=== PATIENT | female | born 1955 | race Caucasian/White ===

== ENCOUNTER 2018-07-15 11:30 | Outpatient (CLI) | payer OTHER, SELFPAY ==
--- NOTE | 2018-07-15 10:40 | DI.RAD_ITS ---
SYMPTOMS/DIAGNOSIS: LT KNEE PAIN, LT PATELLOFEMORAL ARTHRALGIA, M25.562 LEFT KNEE: Three views. No bone or joint abnormality is identified. The soft tissues are grossly unremarkable. IMPRESSION: Negative left knee.
== END 2018-07-15 11:50 ==
PROVIDERS: PCP Emergency Medicine; Visit Provider Family Medicine
DX: M25.562 Pain in left knee (principal); M22.2X2 Patellofemoral disorders, left knee
CPT/HCPCS: 73562

== ENCOUNTER 2018-08-05 10:08 | Outpatient (CLI) | payer OTHER, SELFPAY ==
--- NOTE | 2018-08-05 09:54 | DI.RAD_ITS ---
SYMPTOMS/DIAGNOSIS: PAIN LEFT KNEE: Single AP weight bearing view of the left knee was obtained. The joint spaces appear well maintained. The bones appear normally mineralized and normally aligned.
== END 2018-08-05 10:28 ==
PROVIDERS: PCP Emergency Medicine; Visit Provider Physician Assistant Surgical
DX: M25.562 Pain in left knee (principal)
CPT/HCPCS: 73560

== ENCOUNTER 2018-08-17 00:56 | Outpatient (CLI) | payer OTHER, SELFPAY ==
--- NOTE | 2018-08-17 08:56 | DI.MRI_ITS ---
SYMPTOMS/DIAGNOSIS: LEFT KNEE INTERNAL DERANGEMENT, M25.92, POSTERIOR PAIN LEFT KNEE MRI: MRI examination of the knee was performed according to the usual protocol. Note is made of mild cartilage thinning, and abnormal cartilage signal and subchondral signal changes of the patella. Note is also made of mildly abnormal signal in the soft tissues anterior to the patellar attachment on the tibia, which may represent mild inflammatory process. There are subchondral cysts of the central portion of the proximal tibia, presumably on a degenerative basis. Cruciate ligaments appear intact. No definite meniscal tear is seen, although the menisci are not ideally visualized due to motion artifact on multiple pulse sequences. In particular, I cannot exclude a nondisplaced tear of the posterior horn of the lateral meniscus, as there is a questioned slight irregularity of meniscal contour at this site. Collateral ligaments appear intact. CONCLUSION: Patellofemoral degenerative changes. No cruciate ligament tear, posterior horn lateral meniscus tear suspected but not confirmed.
== END 2018-08-17 01:16 ==
PROVIDERS: PCP Emergency Medicine; Visit Provider Orthopaedic Surgery
DX: M23.92 Unspecified internal derangement of left knee (principal); M17.12 Unilateral primary osteoarthritis, left knee
CPT/HCPCS: 73721

== ENCOUNTER 2019-03-30 19:34 | Outpatient (REF) | payer OTHER, SELFPAY ==
--- NOTE | 2019-03-30 18:20 | PAPFT_PTH ---
PATIENT: Anabell Torres LOC: [facility] U#:[id number] AGE/SX: 63/F ROOM: RE03/30/[address]: Cece Vieira, PhD TEACHER LEARNING DISABLED : 1955 BED: DIS: 03/30/2019 SPEC #: [id number] RECD: 03/31/19 12:57 STATUS: GERRI REQ #: [id number] BRIDGETTE: 03/30/19 18:[address]: Cece Vieira DEPT: [facility] Cytology RECD BY: Chiara Barron Tissues: 1 - CX/ENDOCX FOR PAP SMEARS Procedures: PAP THIN PREP/UVM Screening HPV DNA PROBE Comments: [id number] (CHLAMYDIA/GC)
[2019-04-01 14:14] LABS: Chlamydia Result Negative (Negative); GC Result Negative (Negative)
== END 2019-03-30 19:54 ==
LOC: LBN 19:34
PROVIDERS: PCP Nurse Practitioner; Visit Provider Nurse Practitioner
DX: Z12.4 Encounter for screening for malignant neoplasm of cervix (principal); Z11.51 Encounter for screening for human papillomavirus (HPV)
CPT/HCPCS: 87491; 87591; 88142; 87624

== ENCOUNTER 2019-04-07 01:32 | Outpatient (CLI) | payer OTHER, SELFPAY ==
[2019-04-07 11:57] LABS: Calculated LDL 152 mg/dL; Cholesterol 206 mg/dL (<200); HDL Cholesterol 43 mg/dL (40-60); Triglyceride 55 mg/dL (<150)
[2019-04-07 12:04] LABS: Hemoglobin A1C 5.9 % (4.5-6.2)
== END 2019-04-07 01:52 ==
PROVIDERS: PCP Nurse Practitioner; Visit Provider Nurse Practitioner
DX: Z13.1 Encounter for screening for diabetes mellitus (principal); Z13.6 Encounter for screening for cardiovascular disorders
CPT/HCPCS: 36415; 80061; 83036

== ENCOUNTER 2019-12-20 10:54 | Emergency (ER) | payer OTHER, SELFPAY ==
[2019-12-20] VITALS (32 sets, daily range): BP systolic 158–176; BP diastolic 83–102; PULSE 61–91; RESP 10–23; TEMP 36.6; O2SAT 93–100
--- NOTE | 2019-12-20 11:06 | ED.GENADUL_ITS ---
Discharge Plan Disposition Patient Disposition: HOME Condition: Stable Discharge Details Chief Complaint: Allergic Clinical Impression: Bee sting Primary Care Provider: Cece Vieira ED Provider: Lizabeth Villalobos Home Meds and New Rx's Prescriptions: New prednisone 20 mg tablet See Rx Instructions .ROUTE .COMPLEX Qty: 12 RF: 0 Discharge Instructions Instructions: Insect Bite or Sting (ED) Additional Instructions: Drink plenty of fluids and get plenty of rest. Take the steroids until finished. Take Benadryl as needed and directed for itching. Follow-up with your primary care doctor in 1 week. Return to the emergency department with any worsening or new concerning symptoms. Discharge Data Discharge Physician: Lizabeth Villalobos Medical Decision Making 1100 -- 63-year-old female presents for urticaria and hives at sites of multiple bee stings that occurred 3 hours prior to arrival. Denies any throat swelling or itching, difficulty breathing, nausea or vomiting. She took 2 tabs of Benadryl prior to arrival. BP 174/102. She has no history of hypertension. She has erythema and edema consistent with urticaria noted to left lower lip and chin, right upper extremity and right ankle at site of bee sting. As she has lower lip swelling at site of bee sting, do not consider this significant oral or respiratory involvement, so do not see an indication for epinephrine at this time. Will place an IV, bolus IV fluids, Solu-Medrol and reassess. 1215 --patient feeling slightly better. She is complaining of some right ankle pain. Will give a dose of Toradol and reassess. 1315 --patient reassessed -she feels better but still has some swelling noted to the left lower lip and chin. Areas of erythema appear much improved. Denies any throat swelling or itching or difficulty breathing. We will continue to monitor a little while longer and patient agreeable. 1500 --patient reassessed -she states she feels much better. Near resolution of left lower lip and chin swelling. She denies any complaints of difficulty swallowing or breathing. Patient feels good to go home. We will send with a prescription for oral steroids. She is advised to use Benadryl or other antihistamines as needed. Advised to follow up with the primary care doctor for re-evaluation. Usual and customary return precautions given prior to discharge. Medical Records Medical records reviewed: Yes I reviewed the patient's medical records. HPI General Mode of arrival: ambulatory . Date/Time Provider Initiated Documentation: 12/20/19 11:06 . Limitations to Documentation: no limitations . Information obtained by: patient . HPI Narrative: Patient is a 63-year-old female presents with red itchy bumps noted to her face, arm and right leg after multiple bee stings sustained at home 3 hours ago. Patient states she was outside weeding when she pulled the lead and was stung by approximately 10 hornets in her face, right arm and leg. She denies any history of anaphylaxis to bees or other medications. She took 2 tabs of Benadryl prior to arrival. She called her primary care doctor as well as pharmacist and was advised to come to the ER for further evaluation. She denies any fever, throat swelling or itching, difficulty swallowing, chest pain, shortness of breath, nausea, vomiting or abdominal pain. Related Data Home Medications Medication Instructions Recorded Confirmed prednisone See Rx Instructions .ROUTE 12/20/19 .COMPLEX #12 tab Previous Rx's Medication Instructions Recorded prednisone See Rx Instructions .ROUTE 12/20/19 .COMPLEX #12 tab Allergies Allergy/AdvReac Type Severity Reaction Status Date / Time Penicillins Allergy Unknown Verified 03/30/19 18:23 General Stated Complaint: Allergic VISHAL: 3 Review of Systems All systems reviewed & are unremarkable except as noted in HPI and below Constitutional Constitutional: Reports as per HPI, Denies chills and Denies fever(s) Eyes Eyes: Denies blurry vision ENT Ears, Nose, Mouth, and Throat: Denies dizziness, Denies sore throat and Denies t hroat swelling Cardiovascular Cardiovascular: Denies chest pain and Denies dyspnea Respiratory Respiratory: Denies cough and Denies dyspnea Gastrointestinal Gastrointestinal: Denies abdominal pain, Denies diarrhea and Denies vomiting Genitourinary Genitourinary: Denies hematuria and Denies dysuria Musculoskeletal Musculoskeletal: Denies back pain and Denies numbness Integumentary/Breasts Skin/Breast: Denies lesions and Reports rash Neurologic Neurologic: Denies dizziness, Denies localized weakness and Denies numbness Allergic/Immunologic Allergic/Immunologic: Denies throat swelling [facility] Medical History (Updated 12/20/19 @ 14:12 by Lizabeth Villalobos DO) No significant past medical history (Acute) Surgical History (Updated 12/20/19 @ 12:31 by Lizabeth Villalobos DO) No significant past surgical history (Acute) Family History (Updated 03/24/19 @ 10:31 by Emerson Bianchi) Mother , age 75+ Metastatic lung cancer (metastasis from lung to other site) Father , age 75+ Heart disease Sister Depression Chronic fatigue syndrome Son No problems noted. Son No problems noted. Maternal Grandfather , in his 70s Heart disease [place] Paternal Grandfather , in his 70s No problems noted. Maternal Grandmother , in her 70s No problems noted. Paternal Grandmother , in her 40s No problems noted. Social History (Updated 03/24/19 @ 10:25 by Emerson Bianchi) Smoking/Tobacco Use Status: Former Tobacco Use Quit Date: 05/19/77 Second Hand Exposure: Yes Alcohol Intake: current Alcohol Intake frequency: a few times a week Alcohol type: beer, wine and hard liquor Drug use: Never Substance use type: does not use Caregiver/Support person: No Household members: none Housing: house Communication Needs: None Do you need help understanding health information?: Never Pets and animals: Yes Pets and animals: cat(s) and dog(s) Sexually active: No Do you think of yourself as: straight/heterosexual Current gender identity: female What is your relationship status?: How often do you talk on the phone with friends or family?: three or more times per week How often do you get together with friends or relatives?: three or more times per week How often do you attend rastafari or adventism services?: 1-3 times per year Do you belong to any clubs or organized social groups?: no Panel score (0-1 are the most socially isolated patients): 1 Duration: 60-90 minutes/day Frequency: daily Emi/Tenriism: Jew Special emi needs: No Seatbelt use: always Helmet use: Yes Helmet use: always Drive intox or ride w/intox driver examiner: No Do you feel safe at home: Yes Do you feel safe in your relationship?: Yes Additional Social history: lives alone Exam Const General: cooperative and healthy appearing Nutritional Appearance: average body habitus Orientation: alert and awake HENNV Head: normocephalic and atraumatic Ears: hearing grossly normal bilaterally, external ears normal and TM's normal bilaterally General nose exam: external nose normal, nares normal and no nasal discharge Mouth: oral mucosae normal, tongue normal and moist mucous membranes Teeth and gingiva: dentition normal Throat: posterior oropharynx normal, uvula midline, no peritonsillar masses and no uvular edema Eyes General: appearance normal, both eyes and all related structures Eyelids: eyelids normal Conjunctivae: conjunctivae normal Pupils: PERRL EOM: EOM intact bilaterally Neck Neck: normal visual inspection, no lymphadenopathy, trachea midline, supple and No submandibular swelling Chest Chest: normal inspection of the chest Resp Effort & Inspection: normal respiratory effort, no audible wheezes, no nasal flaring, no retractions and no use of accessory muscles Auscultation: clear to auscultation bilaterally Cardio Rate: regular rate Rhythm: regular rhythm Heart Sounds: no murmurs GI Inspection: normal to inspection Palpation: soft, no hepatosplenomegaly, no guarding, no masses, not rigid and nontender Auscultation: normal bowel sounds External Female Exam: normal external appearance Back/Spine/Pelvis Back: no CVA tenderness Neuro General: patient alert, patient awake, patient oriented x3 and no meningeal signs Cognition: normal cognition Speech: speech normal Motor: muscle tone normal throughout Sensory Exam: no sensory deficits noted Extrem General: normal to inspection, full ROM and capillary refill normal Psych Appearance: grossly normal Mental Status: mental status grossly normal Speech and Movement: speech and movement normal Affect: normal affect Thought Process: normal Course Vital Signs Vital signs: Vital Signs Temperature 97.9 F 12/20/19 10:56 Pulse 76 12/20/19 10:56 Respiratory Rate 14 12/20/19 10:56 Blood Pressure 174/102 H 12/20/19 10:56 Pulse Oximetry 100 12/20/19 10:56 Temperature 97.9 F 12/20/19 10:56 Temperature Source Skin 12/20/19 10:56 Pulse 76 12/20/19 10:56 Respiratory Rate 14 12/20/19 10:56 Respiratory Effort 12/20/19 11:04 Respiratory Pattern Normal 12/20/19 11:04 Blood Pressure 174/102 H 12/20/19 10:56 Blood Pressure Position Sitting 12/20/19 10:56 Pulse Oximetry 100 12/20/19 10:56 Oxygen Delivery Method Room Air 12/20/19 10:56 Oxygen Flow Rate 0 12/20/19 10:56 Pain Level 6 12/20/19 10:56
[2019-12-20] MEDS: Normal Saline 1,000 ML 1000 ML IV (11:10)
[2019-12-20] MEDS: methylPREDNISolone SUCC 125 MG VIAL IVP (11:11)
[2019-12-20] MEDS: Ketorolac 30 MG/ML VIAL IVP (12:45)
== END 2019-12-20 15:28 | disposition home or self-care (01) ==
PROVIDERS: Emergency Provider Physician Assistant; PCP Nurse Practitioner
DX: T63.451A Toxic effect of venom of hornets, accidental (unintentional), initial encounter (principal); L50.0 Allergic urticaria; L29.8 Other pruritus; M25.571 Pain in right ankle and joints of right foot
CPT/HCPCS: 96361; 96374; 96375; 99284; J1885; J2930

== ENCOUNTER 2021-01-23 12:23 | Emergency (ER) | payer OTHER, SELFPAY ==
[2021-01-23 12:31] VITALS: BP 148/88; PULSE 82; RESP 16; TEMP 36.8; O2SAT 95
--- NOTE | 2021-01-23 12:43 | ED.GENADUL_ITS ---
Discharge Plan Disposition Patient Disposition: HOME Condition: Stable Discharge Details Clinical Impression: Closed fracture of left distal radius Primary Care Provider: Cece Vieira ED Provider: Emilie Martinez Home Meds and New Rx's Prescriptions: No Action No Known Home Meds RF: 0 Discharge Instructions Instructions: Wrist Fracture in Adults (ED), Splint Care (ED) Additional Instructions: Please leave splint on until follow-up with Ortho. Do not get splint wet. If your fingers become cold blue numb or tingling you may loosen up the James wrap. Please call the orthopedic office tomorrow if you do not hear from them by the end of the day they should be calling you to instruct on further care. Please take Tylenol or Ibuprofen with food every 4-6 hours as needed for pain and swelling. Stand Alone Forms: Work Release Referrals: Aden Armenta MD [ [facility] STAFF PHYSICIAN] - Discharge Data Discharge Date/Time-TO BE ENTERED AT DEPARTURE: 01/23/21 14:54 Medical Decision Making 65-year-old female presents to the ER with chief complaint of left wrist pain and deformity status post a mechanical fall while hiking prior to arrival. Patient reports a FOOSH type injury. She does have some ventral swelling noted distal CMS intact. Did not take anything prior to arrival. No other injuries or complaints at this time. XR and tylenol ordered. Rings removed, ice pack given. EXAM: XR WRIST LT COMPLETE CLINICAL HISTORY: Fall, deformity. TECHNIQUE: 2D digital imaging was performed. COMPARISON: No exams were available for comparison FINDINGS: BONES: There is a comminuted fracture of the distal radial metaphysis with impaction and dorsal angulation. There is no different separation at the articular surface. Tiny densities seen adjacent to the ulnar styloid. No carpal or metacarpal fractures are seen.. No bony destructive lesion is seen. JOINTS: The carpal bones are normally aligned. SOFT TISSUE: Marked soft tissue swelling around the wrist. IMPRESSION: Comminuted, impacted distal radial fracture. Spoke with Dr. Armenta who is on-call for orthopedics who was personally able to review the imaging. He recommends a volar splint and discussion with patient regarding reduction here in the emergency department versus reduction at a later date in the OR. After discussing results with patient and options she opted to have the reduction done in the OR with Dr. Armenta. Volar splint was applied a s noted in procedure note above. CMS intact post splint application. Patient placed on orthopedic follow-up list. Discussed home care strict return instructions and follow-up with patient who verbalized understanding. HPI General Mode of arrival: ambulatory . Date/Time Provider Initiated Documentation: 01/23/21 12:37 . Limitations to Documentation: no limitations . Information obtained by: patient and RN notes reviewed . HPI Narrative: 65-year-old female presents to the ER with chief complaint of left wrist pain and deformity status post a mechanical fall while hiking prior to arrival. Patient reports a FOOSH type injury. She does have some ventral swelling noted distal CMS intact. Did not take anything prior to arrival. No other injuries or complaints at this time. Related Data Home Medications Medication Instructions Recorded Confirmed Unknown [No Known Home Meds] 07/06/20 01/24/21 Allergies Allergy/AdvReac Type Severity Reaction Status Date / Time Penicillins Allergy Unknown Verified 01/24/21 09:23 General Stated Complaint: Orthopedic VISHAL: 3 Review of Systems All systems reviewed & are unremarkable except as noted in HPI and below Musculoskeletal Musculoskeletal: Reports deformity (left wrist), Reports arthralgias and Reports joint swelling [facility] Medical History (Updated 01/24/21 @ 09:22 by Jeffy Mccann) Hx of dislocation of shoulder No significant past medical history Surgical History (Updated 01/24/21 @ 09:25 by Jeffy Mccann) Hx of colonoscopy No significant past surgical history Family History Mother , age 75+ Metastatic lung cancer (metastasis from lung to other site) Father , age 75+ Heart disease Sister Depression Chronic fatigue syndrome Son No problems noted. Son No problems noted. Maternal Grandfather , in his 70s Heart disease [place] Paternal Grandfather , in his 70s No problems noted. Maternal Grandmother , in her 70s No problems noted. Paternal Grandmother , in her 40s No problems noted. Social History Smoking/Tobacco Use Status: Former Tobacco Use Quit Date: 05/19/77 Tobacco: How many years used: 3 Second Hand Exposure: Yes Smoking risk assessment performed?: Yes Alcohol Intake: current Alcohol Intake frequency: a few times a week Alcohol type: beer, wine and hard liquor Drug use: Never Substance use type: does not use Caregiver/Support person: No Household members: none Housing: house Communication Needs: None Do you need help understanding health information?: Never Pets and animals: Yes Pets and animals: cat(s) and dog(s) Sexually active: No Do you think of yourself as: straight/heterosexual Current gender identity: female What is your relationship status?: How often do you talk on the phone with friends or family?: three or more times per week How often do you get together with friends or relatives?: three or more times per week How often do you attend jain or mosque services?: 1-3 times per year Do you belong to any clubs or organized social groups?: no Panel score (0-1 are the most socially isolated patients): 1 Duration: 60-90 minutes/day Frequency: daily Emi/Gnosticist: Hindu Special emi needs: No Seatbelt use: always Helmet use: Yes Helmet use: always Drive intox or ride w/intox maintenance truck driver: No Do you feel safe at home: Yes Do you feel safe in your relationship?: Yes Additional Social history: lives alone Exam Extrem Left upper extremity: wrist Details: abnormal to inspection Details: obvious deformity (Ventral surface wrist) and joint swelling, tenderness, swelling, normal vascular exam and radial pulse present Course Vital Signs Vital signs: Vital Signs Temperature 36.8 C 01/23/21 12:31 Pulse 82 01/23/21 12:31 Respiratory Rate 16 01/23/21 12:31 Blood Pressure 148/88 H 01/23/21 12:31 Pulse Oximetry 95 01/23/21 12:31 Temperature 36.8 C 01/23/21 12:31 Pulse 82 01/23/21 12:31 Respiratory Rate 16 01/23/21 12:31 Blood Pressure 148/88 H 01/23/21 12:31 Blood Pressure Position Sitting 01/23/21 12:31 Pulse Oximetry 95 01/23/21 12:31 Oxygen Delivery Method Room Air 01/23/21 12:31 Oxygen Flow Rate 0 01/23/21 12:31 Pain Level 8 01/23/21 12:31 Procedures Orthopedic Splinting/Casting Injury #1: Side: left Upper Extremity Injury Location: wrist Upper Extremity Immobilizer: volar splint and James wrap Other Orthopedic Equipment: other (Sling)
[2021-01-23] MEDS: Acetaminophen 325 MG TAB 650 MG PO (13:00)
--- NOTE | 2021-01-23 13:25 | DI.RAD_ITS ---
Exam(s) XR WRIST LT COMPLETE EXAM: XR WRIST LT COMPLETE CLINICAL HISTORY: Fall, deformity. TECHNIQUE: 2D digital imaging was performed. COMPARISON: No exams were available for comparison FINDINGS: BONES: There is a comminuted fracture of the distal radial metaphysis with impaction and dorsal angul ation. There is no different separation at the articular surface. Tiny densities seen adjacent to t he ulnar styloid. No carpal or metacarpal fractures are seen.. No bony destructive lesion is seen. JOINTS: The carpal bones are normally aligned. SOFT TISSUE: Marked soft tissue swelling around the wrist. IMPRESSION: Comminuted, impacted distal radial fracture. DATA REPOSITORY: RADIATION DOSE DELIVERED:
[2021-01-23 14:34] LABS: Source Nasal/Nares
[2021-01-23 15:32] LABS: COVID-19 PCR Negative (Negative)
== END 2021-01-23 14:54 | disposition home or self-care (01) ==
PROVIDERS: Emergency Provider Registered Nurse Emergency; PCP Nurse Practitioner
DX: S52.592A Other fractures of lower end of left radius, initial encounter for closed fracture (principal); W18.39XA Other fall on same level, initial encounter; Y93.01 Activity, walking, marching and hiking; Z20.822 Contact with and (suspected) exposure to COVID-19; Z03.818 Encounter for observation for suspected exposure to other biological agents ruled out
CPT/HCPCS: 29125; 87635; 99283; 73110

== ENCOUNTER 2021-01-25 11:28 | Day surgery (SDC) | payer OTHER, SELFPAY ==
--- NOTE | 2021-01-24 13:47 | W.ANESPRE ---
General Info Date of Service Date Performed: 01/25/21 Height: 5 ft 6 in Weight: 58.967 kg Body Mass Index (BMI): 20.9 Surgical Procedure: Operation Date: 01/25/21 13:10 Proposed Procedures Side Surgeon p Closed Reduction AND CASTING LT WRIST Left Aden Armenta MD Meds Allergies and Home Medications Allergies Allergy/AdvReac Type Severity Reaction Status Date / Time Penicillins Allergy Unknown Verified 01/25/21 11:54 Home Medication Medication Instructions Recorded ibuprofen 200 mg PO PRN PRN 01/25/21 Current Visit Medications: Current Medications Generic Name Dose Route Start Last Admin Trade Name Freq PRN Reason Stop Dose Admin Ringer's Solution 1,000 mls @ 80 mls/hr 01/25/21 06:00 IV 02/23/21 23:59 INFUSION KAREN IV Miscellaneous Supplies 1 each 01/25/21 06:00 Iv Access IV 02/23/21 23:59 DIRECTED KAREN Sodium Chloride 0 ml 01/25/21 06:00 Normal Saline Flush 10 Ml Syr IV 02/23/21 23:59 PRN PRN Sodium Chloride 0 ml 01/25/21 06:00 Normal Saline 10 Ml Vial IJ 02/23/21 23:59 DIRECTED PRN Sterile Water 0 ml 01/25/21 06:00 Water,Injection,Sterile 10 Ml Vial IJ 02/23/21 23:59 DIRECTED PRN PFSH Active Problems Active Problems: Problem Status Onset Code Annual physical exam Z00.00 Essential tremor G25.0 Pre-diabetes R73.03 Elevated blood pressure reading without diagnosis of hypertension R03.0 Closed fracture of left distal radius S52.502A Medical History Medical History (Updated 01/25/21 @ 12:56 by Aden Armenta MD) Hx of dislocation of shoulder No significant past medical history Surgical History Surgical History Hx of colonoscopy No significant past surgical history Tobacco Smoking/Tobacco Use Status: Former Tobacco Use Tobacco: How many years used: 3 Passive smoking exposure: Yes (rarely) Second hand exposure: Yes Alcohol Alcohol Intake: current Alcohol intake frequency: a few times a week Alcohol type: beer, wine and hard liquor Substance Use Substance use: Never Substance use type: does not use Vital Signs and Lab Results Vital Signs Most Recent Vital Signs in EMR: Temp Pulse Resp BP Pulse Ox 36.9 C 91 H 16 132/71 98 01/25/21 11:35 01/25/21 11:35 01/25/21 11:35 01/25/21 11:35 01/25/21 11:35 Lab Results Blood Type / Crossmatch: No Data to Display Complete Blood Count: No Data to Display Complete Metabolic Panel: No Data to Display Liver Function Panel: No Data to Display Coagulation Panel: No Data to Display Cardiac Panel: No Data to Display Arterial Blood Gas: No Data to Display Venous Blood Gas: No Data to Display Pancreas Panel: No Data to Display Thyroid Panel: No Data to Display Infectious Disease: Coronavirus (COVID-19)(PCR) Negative (Negative) 01/23/21 14:15 01/23/21 Coronavirus 2019 Source Nasal/Nares 01/23/21 14:15 01/23/21 Blood Cultures: No Data to Display Toxicology Panel: No Data to Display Anesthesia Assessment and Plan Anesthesia History Personal History: No History of Anesthesia Complications Family History: No Family History of Anesthesia Complications Exercise Tolerance Exercise Tolerance: Metabolic Equivalents>4 Cardiac & Pulmonary Exam Cardiac Exam: Normal S1/S2 Heart Sounds Pulmonary Exam: Clear Bilateral Breath Sounds Airway Exam Known Difficult Airway: No Mallampati Class: 2 Mouth Opening: Normal (> 3cm) Thyromental Distance: Less than 3 cm Neck Range of Motion: Full ROM Neck Circumference: Normal Teeth Condition: Normal Dentition ASA Classification ASA Score: ASA 2 Emergency Case?: No NPO Status NPO Status: NPO Clears >2 hours, Solids >8 hours Anesthesia Plan Resuscitation Status: Full Code Anesthesia Technique: General Anesthesia Airway Planned: Natural Airway Monitors Used: Standard Monitors Preoperative Comments:: 65 yo female to OR for ORIF for left wrist fracture sustained while hiking. no sig PMHx.
[2021-01-25] VITALS (7 sets, daily range): BP systolic 100–132; BP diastolic 56–71; PULSE 62–91; RESP 10–16; TEMP 36.4–36.9; O2SAT 94–98; BMI 20.9
--- NOTE | 2021-01-25 10:30 | DI.RAD_ITS ---
Exam(s) XR WRIST LT LIMITED EXAM: XR WRIST LT LIMITED CLINICAL HISTORY: LEFT DISTAL RADIUS FRACTURE. TECHNIQUE: 2D and realtime digital imaging was performed. COMPARISON: No exams were available for comparison FINDINGS: Fluoroscopy was provided in the OR for Dr. Armenta. Hard copy images show placement of a fixation p late along the volar aspect of the distal radius for fracture fixation. Please see procedure note for details. Fluoro time 37 seconds. RADIATION DOSE DELIVERED: nancy Jasso=0.58 mGy
[2021-01-25] MEDS: Lactated Ringers 1,000 ML 80 ML IV (12:14)
--- NOTE | 2021-01-25 12:51 | W.PREOPHP ---
Date of service: 01/25/21 Time of Service: 12:52 Assessment and Plan Assessment and plan (1) Closed fracture of left distal radius: Status: Acute Assessment and plan: Aileen is a 65-year-old active female who suffered a fracture to her left hand. She is [id number]. However, she is very active. She has no major medical issues. Given the nondisplacement I do recommend reduction. Discussed close reduction and casting versus open reduction internal fixation. She would likely use this as much possible symptoms possible and therefore, given the amount of displacement of the risk for redisplacement after postreduction I did offer her open reduction and internal fixation. I reviewed 10 procedure. I discussed the to include bleeding, infection, pain, stiffness, malunion, nonunion, damage to nerves and vessels, damage to muscle tendons, hardware prominence, hardware failure. Despite these risks, she elects to proceed. Qualifiers: Encounter type: initial encounter Fracture morphology: Jim' Qualified Code(s): S52.532A - Colles' fracture of left radius, initial encounter for closed fracture History of Present Illness History of Present Illness Chief Complaint: Left Wrist Fracture Narrative: Aileen is a 5-year-old who had a fall onto an outstretched left hand while hiking. She had immediate pain and deformity in the emergency department 2 days prior. She was diagnosed with a displaced distal radius fracture with notable dorsal comminution and angulation. She was placed into a splint. I had a long discussion with her about treatment options recommendations close reduction is not open reduction internal fixation. She prefers to proceed with ORIF and she is hesitant today. She reports no numbness or tingling. No significant pain. She is taking no medications. She denies any elbow or shoulder pain. She is very active and wants we will use her hand as soon as possible. She hikes and is very active on a daily basis. Review of Systems All systems reviewed & are unremarkable except as noted in HPI and below PFSH Medical History Hx of dislocation of shoulder No significant past medical history Surgical History Hx of colonoscopy No significant past surgical history Family History Mother , age 75+ Metastatic lung cancer (metastasis from lung to other site) Father , age 75+ Heart disease Sister Depression Chronic fatigue syndrome Son No problems noted. Son No problems noted. Maternal Grandfather , in his 70s Heart disease [place] Paternal Grandfather , in his 70s No problems noted. Maternal Grandmother , in her 70s No problems noted. Paternal Grandmother , in her 40s No problems noted. Social History Smoking/Tobacco Use Status: Former Tobacco Use Quit Date: 05/19/77 Tobacco: How many years used: 3 Second Hand Exposure: Yes Smoking risk assessment performed?: Yes Alcohol Intake: current Alcohol Intake frequency: 0-2 drinks per day Alcohol type: wine Drug use: Never Substance use type: does not use Caregiver/Support person: No Household members: none Housing: house Communication Needs: None Do you need help understanding health information?: Never Pets and animals: Yes Pets and animals: cat(s) and dog(s) Sexually active: No Do you think of yourself as: straight/heterosexual Current gender identity: female What is your relationship status?: How often do you talk on the phone with friends or family?: three or more times per week How often do you get together with friends or relatives?: three or more times per week How often do you attend congregation or rastafari services?: 1-3 times per year Do you belong to any clubs or organized social groups?: no Panel score (0-1 are the most socially isolated patients): 1 Duration: 60-90 minutes/day Frequency: daily Emi/Episcopal: Congregation Special emi needs: No Seatbelt use: always Helmet use: Yes Helmet use: always Drive intox or ride w/intox entry driver operator: No Do you feel safe at home: Yes Additional Social history: lives alone Meds Allergies and Home Medications Allergies Allergy/AdvReac Type Severity Reaction Status Date / Time Penicillins Allergy Unknown Verified 01/25/21 11:54 Home Medications Medication Instructions Recorded Confirmed Type ibuprofen 200 mg PO PRN PRN 01/25/21 01/25/21 History Exam Const General: cooperative, healthy appearing, comfortable and no acute distress Nutritional Appearance: average body habitus Orientation: alert, awake and oriented x3 Resp Auscultation: clear to auscultation bilaterally Cardio Rate: regular rate Rhythm: regular rhythm Extrem Other: Evaluation of the left hand shows it is in a splint. Notable swelling right hand. Some resolving ecchymosis. She is able demonstrate active finger extension, finger abduction, thumb extension and flexion, and finger flexion. Sensation intact to light touch of the median, radial, ulnar nerve. Capillary refill less than 3 seconds. Results Imaging Imaging Studies: X-ray of the left wrist performed in the emergency department demonstrates a primary extra-articular fracture of the left distal radius with some dorsal intra-articular extension dorsal comminution. There is marked dorsal angulation of approximately 35 degrees. Last Vital Signs Temp 36.9 C 01/25/21 11:35 Pulse 91 H 01/25/21 11:35 Resp 16 01/25/21 11:35 BP 132/71 01/25/21 11:35 Pulse Ox 98 01/25/21 11:35
[2021-01-25] MEDS: ceFAZolin 2,000 MG in Normal Saline 100 ML 200 MG IVPB (13:16)
--- NOTE | 2021-01-25 13:20 | W.ANESNERVE ---
Nerve Block Single Injection Procedure Date and Time Date Performed: 01/25/21 Procedure Start: 13:10 Location Where Procedure Performed Procedure Location: PACU Reason Performed: Postoperative Analgesia Requesting Provider: Aden Armenta Timeout Performed Timeout Performed: Yes Monitoring Used ECG, Blood Pressure and SpO2 Sterility Sterility: Hand Hygiene, Surgical Cap, Surgical Mask and Sterile Gloves Sedation Given During Procedure Sedation Given (Indicate Dose Given): Versed IV Dose:: 2 mg Patient Mental Status Patient Mental Status: Sedate with meaningful communication Nerve Block 1st Nerve Block: Laterality: Left Block Type: Supraclavicular Needle / Catheter Used: 100mm SonoPlex II Local Anesthetic Bolus (Indicate Dose Given): Lidocaine used for local infiltration of skin, Injected in 3-5ml increments after negative blood aspiration, Bupivacaine 0.5% Dose:: 20 mL and Exparel Dose:: 10 mL Additives (Indicate Dose Given): None Ultrasound: Sterile probe cover and gel used Ultrasound Image Saved?: Yes Nerve Stimulator: Not Used Paresthesia: None Procedure Tolerated: No Complications Procedure Outcome: Successful Performed By: Pavan Ramos
--- NOTE | 2021-01-25 15:10 | PDOC.DSDIS_ITS ---
Discharge Plan Disposition Patient Disposition: HOME Condition: Good Discharge Details Reason For Visit: (L) DISTAL RADIUS FX Attending Provider: Aden Armenta Primary Care Provider: Cece Vieira Home Meds and New Rx's Prescriptions: New acetaminophen 500 mg tablet 500 mg PO Q6H PRN PRN (Reason: pain) Qty: 60 RF: 3 hydrocodone-acetaminophen 5-325 mg tablet 1 tab PO Q6H PRN (Reason: pain) Qty: 6 RF: 0 ibuprofen 600 mg tablet 600 mg PO TID PRN (Reason: pain) Qty: 60 RF: 3 Discontinued ibuprofen 200 mg Tablet 200 mg PO PRN PRN (Reason: Pain) RF: 0 Discharge Instructions Additional Instructions: Wrist Fracture Fixation Discharge Instructions Activity: You should keep the hand/wrist elevated as much as possible for the first few days. Elevation is tirado. You may use the other fingers as tolerated but avoid trying to do too much too soon. You may perform light activities with the splint in place. Dressing/Cast: Your splint should stay in place at all times. Do NOT get it wet. You may loosen the SANTO wrap if you feel it is too tight and then rewrap more loosely. Medications: - You should take Tylenol and Ibuprofen for baseline pain control. - You have been prescribed a stronger pain medication, Hydrocodone, for breakthrough pain. - You may apply ice over the wrist, just double bag so it doesn't get wet. Follow-up: 10-14 days Referrals: Aden Armenta MD [ [facility] STAFF PHYSICIAN] - Equipment/Supplies: Splint Activity:: Elevate Remove Dressings/Wound Care:: Do Not Remove Shower/Bathe:: Cover Diet:: As Tolerated Discharge Orders Discharge Orders: Discharge Order (Routine); Ordered 01/25/21 Ordered By: Aden Armenta DS: Diagnosis Discharge Diagnosis (1) Closed fracture of left distal radius: Status: Acute
--- NOTE | 2021-01-25 16:32 | W.ANESPOSTOP ---
Postoperative Evaluation Date, Time and Location Date Performed: 01/25/21 Time Performed: 16:24 Patient Location: Day Surgery Unit Vital Signs Most Recent Imported Vital Signs: Most Recent Vital Signs Temp Pulse Resp BP Pulse Ox 36.7 C 62 16 116/67 98 01/25/21 15:57 01/25/21 15:57 01/25/21 15:57 01/25/21 15:57 01/25/21 15:57 Pain Score Most Recent Pain Score: Most Recent Pain Score Pain Level 0 01/25/21 15:57 Assessment Mental Status: Awake (Alert & Oriented to Patient Baseline) Airway and Respiratory Function: Patent airway with normal (patient baseline) respiratory exam Cardiovascular Function: Hemodynamically Stable Hydration Status: Adequately Hydrated Nausea & Vomiting: No Nausea or Vomiting Pain: Pt. Denies Any Pain Peripheral Nerve Block: Regional nerve block not resolved at time of post operative discharge (Appropriately not resolved. )
--- NOTE | 2021-01-25 20:56 | W.PM.OP ---
Date of service: 01/25/21 Time of Service: 14:21 Operative Note Operative Note DATE OF PROCEDURE: 01/25/21 PRE-OP DIAGNOSIS: Left Distal Radius Fracture POST-OP DIAGNOSIS: same PROCEDURE: Open Reduction and Internal Fixation of Left Distal Radius SURGEON: Aden Armenta EP TECHNOLOGIST: Yoshi Mathias ANESTHESIA TYPE: General LMA/ETT Refer to Anesthesia Record ESTIMATED BLOOD LOSS: 25 PATHOLOGY: none sent TOURNIQUET TIME: 0 COMPLICATIONS: None Patient was transported to: PACU Patient's condition: stable Indications: Anabell is a 65 year old female who I have seen for a distal radius fracture. Given the deformity, displacement, fracture pattern, and effect on daily function, I offered surgical fixation. I reviewed the risk of the procedure to include bleeding, infection, stiffness, damage to nerves and vessels, damage to muscles and tendons, malunion, nonunion, hardware prominence, tendon rupture, need for repeat procedures. Despite these risks, the patient elected to proceed. Findings: There is a distal radius fracture which had 3 primary parts. It was reduced and fixed with a Synthes volar locking plate. Procedure Description: Anabell was greeted in the preoperative holding area. The correct patient and site was confirmed and marked. The history and physical was updated. The consent was reviewed the patient and signed. The patient was taken to the PACU for administration of regional anesthetic, supraclavicular block. The patient was taken to the operating room and placed in the supine position. All bony problems were well-padded. The left arm was placed onto a radiolucent hand table. A nonsterile tourniquet was placed high up on the arm. Prophylactic antibiotics in the form of cefazolin were administered. The left arm was prepped with ChloraPrep and draped in a standard fashion. A timeout was performed for safe surgery. The tourniquet was inflated briefly after exsanguinating the arm but due to blood pressure the tourniquet was not providing any significant benefit and was deflated and not used. A standard longitudinal incision was made overlying the flexor carpi radialis tendon starting at the distal wrist crease and moving proximally. The skin was incised sharply. The flexor carpi radialis tendon and its sheath is identified. The sheath was opened. The tendon was moved ulnarly in the floor of the sheath was incised. Blunt dissection the flexor pollicis longus muscle belly and tendon were also made radially exposing the pronator quadratus and the distal radius. The printer quadratus was elevated with an ulnar-based flap. This exposed the volar distal radius and the fracture. A tirado elevator was used for full exposure of the volar surface of the distal radius. The primary fracture line was exposed. Using a series of elevators, curettes, and knife, the fracture was fully debrided of any fibrous tissue and callus formation. I used a freer elevator to help mobilize the fragments. There were two primary pieces volarly and significant comminution dorsally with a dorsal rim piece seen on x-ray. I then performed a closed reduction. Using gentle traction and fracture manipulation, this reduction was held with a k-wire fromt the radial styloid through the proximal radial fragment/shaft. Fluoroscopic images were used to confirm adequate reduction. An appropriately sized (narrow 3 hole) Synthes volar locking plate was then placed onto the bony surface of the distal radius. It was then held there with a distal radius clamp sandwiching the plate to the distal segment. A single K wire was placed through the distal end. Fluoroscopy was once again used to confirm appropriate positioning of the plate on the distal radius. A reduction K wire was placed into the slotted hole on the shaft but not tightened all the way to allow for manipulation of the distal segment onto the proximal shaft. A single nonlocking screw was placed to the distal portion of the plate securing the plate against the bone of the distal radial metaphysis. Once again, the plate was evaluated to make sure it was aligned appropriately. The single screw was also checked to make sure it was in appropriate positioning for trajectory of future screws. The remainder of the screws within the volar locking plate were filled with locking screws. These were made sure not to penetrate the dorsal cortex. Once these were applied the proximal portion of the plate was further reduced down onto the shaft, which further reduce the distal segment. This was held in position with a tightened reduction K wire. Fluoroscopy was then used against confirm appropriate reduction. Nonlocking screws were placed within the 3 shaft screw holes. Final x-rays were obtained which demonstrated adequate reduction and positioning of hardware. The dorsal sunrise view was also obtained to ensure correct sizing of screws without dorsal penetration. The wound was then thoroughly irrigated. The pronator quadratus was reapproximated with a 0 Vicryl. The fingers were warm and well-perfused. The deep dermal layer was closed with a 2-0 Vicryl. The skin was closed with 4-0 Monocryl in a subcuticular fashion. The wound was dressed with Xeroform, 4 x 4's, web roll. A short arm splint was applied. At the end the case all counts are correct. Patient was transferred back to the PACU in stable condition.
== END 2021-01-25 16:30 | disposition home or self-care (01) ==
PROVIDERS: PCP Nurse Practitioner; Visit Provider Student in an Organized Health Care Education/Training Program
PROC: (CPT 25607; principal; 2021-01-25 13:00)
DX: S52.532A Colles' fracture of left radius, initial encounter for closed fracture (principal); W19.XXXA Unspecified fall, initial encounter; Y93.01 Activity, walking, marching and hiking; R73.03 Prediabetes
CPT/HCPCS: 25607; 76000; 73100; J0690; J1100; J1885; J2001; J2250; J2405

== ENCOUNTER 2021-02-05 09:37 | Outpatient (CLI) | payer OTHER, SELFPAY ==
--- NOTE | 2021-02-05 08:30 | DI.RAD_ITS ---
Exam(s) XR WRIST LT LIMITED EXAM: XR WRIST LT LIMITED CLINICAL HISTORY: ORIF L wrist. TECHNIQUE: 2D digital imaging was performed. COMPARISON: CR XR WRIST LT COMPLETE from 01/23/2021 FINDINGS: There has been interval open reduction internal fixation of the distal radius fracture placement of a volar plate secured by multiple screws. Satisfactory position alignment of the fracture components. IMPRESSION: DATA REPOSITORY: RADIATION DOSE DELIVERED:
== END 2021-02-05 09:38 | disposition home or self-care (01) ==
LOC: DIORS 09:37
PROVIDERS: PCP Nurse Practitioner; Referring Provider Nurse Practitioner; Visit Provider Physician Assistant
DX: S52.532A Colles' fracture of left radius, initial encounter for closed fracture (principal); X58.XXXA Exposure to other specified factors, initial encounter
CPT/HCPCS: 73100

== ENCOUNTER 2021-02-14 02:57 | Outpatient (CLI) | payer OTHER, SELFPAY ==
[2021-02-14 10:45] LABS: Source Nasal/Nares
[2021-02-14 18:14] LABS: COVID-19 PCR Negative (Negative)
== END 2021-02-14 02:58 | disposition home or self-care (01) ==
LOC: LBO 02:58
PROVIDERS: PCP Nurse Practitioner; Visit Provider Student in an Organized Health Care Education/Training Program
DX: Z20.822 Contact with and (suspected) exposure to COVID-19 (principal); Z01.818 Encounter for other preprocedural examination
CPT/HCPCS: 87635

== ENCOUNTER 2021-02-15 11:36 | Day surgery (SDC) | payer OTHER, SELFPAY ==
[2021-02-15] VITALS (7 sets, daily range): BP systolic 109–123; BP diastolic 67–94; PULSE 58–74; RESP 11–16; TEMP 36.2–36.7; O2SAT 95–99; BMI 21.9
--- NOTE | 2021-02-15 12:10 | PDOC.DSDIS_ITS ---
Discharge Plan Disposition Patient Disposition: HOME Condition: Good Discharge Details Reason For Visit: Left EPL Rupture Attending Provider: Aden Armenta Primary Care Provider: Cece Vieira Home Meds and New Rx's Prescriptions: Continued acetaminophen 500 mg tablet 500 mg PO Q6H PRN PRN (Reason: pain) Qty: 60 RF: 3 ibuprofen 600 mg tablet 600 mg PO TID PRN (Reason: pain) Qty: 60 RF: 3 Discharge Instructions Additional Instructions: Thumb Tendon Discharge Instructions Activity: You should keep the hand/thumb elevated as much as possible for the first few days. You may use the other fingers as tolerated but avoid trying to do too much too soon. You may perform light activities with the splint in place. Dressing/Cast: Your splint should stay in place at all times. Do NOT get it wet. You may loosen the SANTO wrap if you feel it is too tight and then rewrap more loosely. Medications: - You should take Tylenol and Ibuprofen for baseline pain control. - You may apply ice over the thumb. Follow-up: 10-14 days. Follow-up with Hand Therapy (Fara Guidry) at [facility] to correspond with follow-up in the office. Referrals: Aden Armenta MD [ [facility] STAFF PHYSICIAN] - Equipment/Supplies: Splint Activity:: Elevate Remove Dressings/Wound Care:: Do Not Remove Shower/Bathe:: Cover Diet:: As Tolerated Discharge Orders Discharge Orders: Discharge Order (Routine); Ordered 02/15/21 Ordered By: Aden Armenta DS: Diagnosis Discharge Diagnosis (1) Rupture of extensor tendon of left hand: Status: Acute
--- NOTE | 2021-02-15 12:11 | W.ANESPRE ---
General Info Date of Service Date Performed: 02/15/21 Height: 5 ft 6 in Weight: 61.6 kg Body Mass Index (BMI): 21.9 Surgical Procedure: Operation Date: 02/15/21 12:40 Proposed Procedures Side Surgeon p EIP TO EPL TRANSFER LT WRIST Left Aden Armenta MD Meds Allergies and Home Medications Allergies Allergy/AdvReac Type Severity Reaction Status Date / Time Penicillins Allergy Unknown Verified 02/15/21 11:59 Home Medication Medication Instructions Recorded acetaminophen 500 mg PO Q6H PRN PRN #60 tab 01/25/21 ibuprofen 600 mg PO TID PRN #60 tab 01/25/21 Current Visit Medications: Current Medications Generic Name Dose Route Start Last Admin Trade Name Freq PRN Reason Stop Dose Admin Acetaminophen 650 mg 02/15/21 12:09 Acetaminophen 325 Mg Tab PO Q4H PRN PRN Hydrocodone Bitart/Acetaminophen 0 tab 02/15/21 12:09 Hydrocodone 5/Acetaminophen 325 Tab PO Q3H PRN PRN Pain PFSH Active Problems Active Problems: Problem Status Onset Code Rupture of extensor tendon of left hand S66.812A Closed fracture of left distal radius S52.502A Annual physical exam Z00.00 Essential tremor G25.0 Pre-diabetes R73.03 Elevated blood pressure reading without diagnosis of hypertension R03.0 Medical History Medical History Hx of dislocation of shoulder No significant past medical history Surgical History Surgical History Closed fracture of left distal radius S/P ORIF: 01/25/2021 Hx of colonoscopy No significant past surgical history Tobacco Smoking/Tobacco Use Status: Former Tobacco Use Tobacco: How many years used: 3 Passive smoking exposure: Yes (rarely) Second hand exposure: Yes Alcohol Alcohol Intake: current Alcohol intake frequency: 0-2 drinks per day Alcohol type: wine Substance Use Substance use: Never Substance use type: does not use Vital Signs and Lab Results Lab Results Blood Type / Crossmatch: No Data to Display Complete Blood Count: No Data to Display Complete Metabolic Panel: No Data to Display Liver Function Panel: No Data to Display Coagulation Panel: No Data to Display Cardiac Panel: No Data to Display Arterial Blood Gas: No Data to Display Venous Blood Gas: No Data to Display Pancreas Panel: No Data to Display Thyroid Panel: No Data to Display Infectious Disease: Coronavirus (COVID-19)(PCR) Negative (Negative) 02/14/21 09:17 02/14/21 Coronavirus 2019 Source Nasal/Nares 02/14/21 09:17 02/14/21 Blood Cultures: No Data to Display Toxicology Panel: No Data to Display Anesthesia Assessment and Plan Anesthesia History Personal History: No History of Anesthesia Complications Family History: No Family History of Anesthesia Complications Exercise Tolerance Exercise Tolerance: Metabolic Equivalents<4 Pertinent Negatives Pertinent Negatives: No Symptoms of GERD, No Major Cardiovascular Symptoms or Complaints, No Major Pulmonary Symptoms or Complaints and No History of CVA/TIA Cardiac & Pulmonary Exam Cardiac Exam: Normal S1/S2 Heart Sounds Pulmonary Exam: Clear Bilateral Breath Sounds Airway Exam Known Difficult Airway: No Mallampati Class: 2 Mouth Opening: Normal (> 3cm) Thyromental Distance: Less than 3 cm Neck Range of Motion: Full ROM Neck Circumference: Normal Teeth Condition: Normal Dentition ASA Classification ASA Score: ASA 2 Emergency Case?: No NPO Status NPO Status: NPO Clears >2 hours, Solids >8 hours Anesthesia Plan Resuscitation Status: Full Code Anesthesia Technique: General Anesthesia Airway Planned: Natural Airway Monitors Used: Standard Monitors
[2021-02-15] MEDS: Lactated Ringers 1,000 ML 80 ML IV (12:27)
[2021-02-15] MEDS: ceFAZolin 2 GM/50 ML BAG IVPB (12:37)
[2021-02-15] MEDS: Sodium Bicarbonate 50 MEQ/50 ML VIAL (13:16)
[2021-02-15] MEDS: fentaNYL 100 MCG/2 ML VIAL IVP (14:10)
[2021-02-15] MEDS: Ketorolac 15 MG/ML VIAL IVP (14:20)
--- NOTE | 2021-02-15 15:29 | W.ANESPOSTOP ---
Postoperative Evaluation Date, Time and Location Date Performed: 02/15/21 Time Performed: 15:29 Patient Location: Day Surgery Unit Vital Signs Most Recent Imported Vital Signs: Most Recent Vital Signs Temp Pulse Resp BP Pulse Ox 36.4 C L 64 16 122/73 97 02/15/21 14:45 02/15/21 14:45 02/15/21 14:45 02/15/21 14:45 02/15/21 14:45 Pain Score Most Recent Pain Score: Most Recent Pain Score Pain Level 5 02/15/21 14:45 Assessment Mental Status: Awake (Alert & Oriented to Patient Baseline) Airway and Respiratory Function: Patent airway with normal (patient baseline) respiratory exam Cardiovascular Function: Hemodynamically Stable Hydration Status: Adequately Hydrated Nausea & Vomiting: No Nausea or Vomiting Pain: Pt. Denies Any Pain Peripheral Nerve Block: Patient did not receive a nerve block
--- NOTE | 2021-02-15 21:16 | ROE_ITS ---
Date of service: 02/15/21 Time of Service: 13:50 Operative Note Operative Note DATE OF PROCEDURE: 02/15/21 PRE-OP DIAGNOSIS: Extensor Pollicis Longus Rupture - Left PROCEDURE: EIP to EPL Transfer - Left SURGEON: Aden Armenta ANESTHESIA TYPE: General:No Airway Refer to Anesthesia Record ESTIMATED BLOOD LOSS: 10 PATHOLOGY: none sent TOURNIQUET TIME: 0 COMPLICATIONS: None Patient was transported to: PACU Patient's condition: stable Indications: Anabell is a 65 year old active female who suffered a distal radius fracture with signicant displacement and comminution. Given the deformity, comminution, and active lifestyle, I recommended operative fixation of her distal radius fracture. She tolerated this well and was doing good with minimal pain when she had a pop and experienced loss of function of the left thumb. She was seen in the office where she was diagnosed with a rupture of the EPL tendon of the left hand. I had a long discussion with Anabell about treatment options and given the dysfunction, I recommended an EIP to EPL transfer. I discussed the risks of the procedure to include bleeding, infection, pain, stiffness, wea kness, rerupture, need for repeat procedures. After this discussion, she elected to proceed. Findings: There was a ruptured EPL at the level of the distal radius with frayed and bulbus ends with no proximal stump identified. An EIP to EPL transfer was performed without difficulty. Procedure Description: Anabell was greeted in the preoperative holding area. Correct surgery and site were confirmed. The history and physical was updated and a consent was reviewed and signed. She was taken back to the operating room and positioned on the operating room table in the supine position with the left hand on a hand table. All bony prominences were well padded. Prophylactic antibiotics in the form of Cefazolin were administered. A timeout was performed for safe surgery. The three proposed surgical sites were marked on the skin: small, transverse incision just proximal to the index MCP joint, small longitudinal incision over the 3rd compartment of the dorsal wrist, and longitudinal incision over the base of the 1st metacarpal. These areas were then anesthetized with 1% Lidocaine with Epinephrine and buffered with Sodium Bicarbonate. No tourniquet was used. Starting with the incision over the metacarpal, the skin was incised for approximately 2cm. Blunt dissection was carried down to mobilize any neurovascular structures. The distal aspect of the EPL tendon was identified and the sheath was opened. There was significant synovitis seen around the tendon. The EPL tendon was then removed from this incision. The proximal edge of this distal tendon was bulbus and frayed for over a 1cm section. There was also thickened synovitis seen in this area. The tendon was then placed back into the wound to prevent dissecation. I then made a longitudinal incision over the 3rd compartment of the distal radius just proximal to the radiocarpal joint. Sharp dissection was carried through the skin only. Blunt dissection was utilized to mobilize longitudinal veins and any superficial nerves. The extensor retinaculum was identified and Huan's tubercle was palpated. An incision in the 3rd compartment, ulnar to Huan's tubercle, was then made. The compartment was empty. There was notable irregularity of the floor of the compartment corresponding to previous fracture deformity. There was also prominence and fracture involving Huan's tubercle. This was exposed and then smoothed with a rongeur. The dissection was continued subperiosteally into the 4th compartment to expose the tendons of the 4th compartment. The deep and radial most tendon was idetnitifed with a distal muscle belly - likely Extensor Indicis Propius. This was hooked with a ragnell and confirmed after distal identification. The transverse incision over the dorsal 2nd MCP joint was then made. The two tendons of the index finger were identified. The EIP, being the most ulnar was dissected and elevated with a ragnell. This confirmed the identified tendon proximally was EIP. After this confirmation, the EIP tendon was transected sharply proximal to the extensor expansion of the index MCP. With gentle and steady pull proximally, the EIP tendon was removed from the wrist. A subcutaneous tunnel was made easily between the thumb and wrist incisions. This followed the previously occupied path of the EPL tendon. The EIP tendon was then routed through this tunnel and brought out at the thumb incision. The path of the EIP was inspected to make sure there were no significant impingements to its direction to the thumb. Any thickened tissue or bony prominences were resected. The retinaculum appeared to be slightly over- released proximally so I reapproximated the most proximal aspect of the retinaculum with a #2-0 Vicryl. Attention was now turned to the connection of EIP to EPL. The thumb was held in hyperextension through the IP and MCP joint. The suspected insertion of the EIP into the EPL was identified and the EIP tendon was brought through the EPL distal tendon and secured with a single pass of a #2-0 Fiberwire. This was then tested for tensioning. The thumb was observed through passive wrist extension such that the thumb IP joint was fully extended with wrist flexion and had some flexion at the IP with wrist extension so the thumb tip touched the radial border of the index finger. With the tensioning confirmed, a pulvertaft weave was performed with 4 additional passes made at 90 degrees to each other. Once these passess were made, the weave was secured with a #2-0 Fiberwire at each pass. The excess EIP tendon was then folded back onto the weave and secured with #2-0 Fiberwire. The proximal edge of the entry split in EPL was then secured with a #2-0 Fiberwire. Proximal excess EPL tendon was secured with one extra suture and then cut proximal to this. The wounds were then irrigated. The deep tissues were closed with a #3-0 Vicryl . The skin was closed with a running 4-0 Monocryl in a subcuticular fashion. The wounds were then dressed with Xeroform and wrapped with 4x4 gauze and Webrill. A thumb spica splint was then applied. At the end of the case, all counts were correct and there were no complications. Anabell was then taken to the PACU in a stable condition.
== END 2021-02-15 15:45 | disposition home or self-care (01) ==
PROVIDERS: PCP Nurse Practitioner; Visit Provider Student in an Organized Health Care Education/Training Program
PROC: (CPT 26480; principal; 2021-02-15 12:30)
DX: S66.212A Strain of extensor muscle, fascia and tendon of left thumb at wrist and hand level, initial encounter (principal); X58.XXXA Exposure to other specified factors, initial encounter; R73.03 Prediabetes; G25.0 Essential tremor; Z87.891 Personal history of nicotine dependence
CPT/HCPCS: 26480; J0690; J1100; J1885; J2405; J3010

== ENCOUNTER 2021-02-26 10:52 | Outpatient (CLI) | payer OTHER, SELFPAY ==
--- NOTE | 2021-02-26 10:30 | DI.RAD_ITS ---
Exam(s) XR WRIST LT COMPLETE EXAM: XR WRIST LT COMPLETE CLINICAL HISTORY: S/P ORIF L DISTAL RADIUS TECHNIQUE: COMPARISON: CR XR WRIST LT LIMITED from 02/05/2021 FINDINGS: Three views were obtained and show previously described fracture of the distal radius with plate and screw fixation in place. Alignment appears unchanged comparison with prior examination of February 05. Note is again made of minimally displaced ulnar styloid fracture. IMPRESSION: RADIATION DOSE DELIVERED: Total DLP
== END 2021-02-26 10:53 | disposition home or self-care (01) ==
LOC: DIORS 10:52
PROVIDERS: PCP Nurse Practitioner; Referring Provider Nurse Practitioner; Visit Provider Student in an Organized Health Care Education/Training Program
DX: S52.532D Colles' fracture of left radius, subsequent encounter for closed fracture with routine healing (principal)
CPT/HCPCS: 73110

== ENCOUNTER 2021-03-26 08:48 | Outpatient (CLI) | payer OTHER, SELFPAY ==
--- NOTE | 2021-03-26 08:00 | DI.RAD_ITS ---
Exam(s) XR WRIST LT LIMITED EXAM: XR WRIST LT LIMITED CLINICAL HISTORY: f/u L wrist ORIF. TECHNIQUE: 2D digital imaging was performed. 2D digital imaging was performed of the left wrist. To images were obtained. PA and lateral views w ere obtained. COMPARISON: CR XR WRIST LT LIMITED from 02/05/2021 FINDINGS: BONES: There are stable post operative changes present. The distal radial fracture lines are less we ll visualized consistent with some interval healing. No new fracture or dislocation. The well cortic ated osseous densities at the tip of the ulnar styloid process are stable. JOINTS: The joint spaces are well maintained. No joint effusion is present. SOFT TISSUE: Normal. IMPRESSION: Healing distal left radial fracture. Stable orthopedic hardware and alignment. DATA REPOSITORY: RADIATION DOSE DELIVERED:
== END 2021-03-26 08:49 | disposition home or self-care (01) ==
LOC: DIORS 08:48
PROVIDERS: PCP Nurse Practitioner; Referring Provider Nurse Practitioner; Visit Provider Student in an Organized Health Care Education/Training Program
DX: S52.592D Other fractures of lower end of left radius, subsequent encounter for closed fracture with routine healing (principal); W18.39XD Other fall on same level, subsequent encounter
CPT/HCPCS: 73100

== ENCOUNTER 2021-07-09 02:32 | Outpatient (CLI) | payer OTHER, SELFPAY ==
[2021-07-09 09:03] LABS: Hemoglobin A1C 5.9 % (<5.7)
== END 2021-07-09 02:33 | disposition home or self-care (01) ==
LOC: LBO 02:32
PROVIDERS: PCP Nurse Practitioner; Visit Provider Nurse Practitioner
DX: R73.03 Prediabetes (principal)
CPT/HCPCS: 36415; 83036

== ENCOUNTER 2021-08-07 01:12 | Outpatient (CLI) | payer OTHER, SELFPAY ==
--- NOTE | 2021-08-07 07:45 | DI.DEXA_ITS ---
Exam(s) XR DEXA BONE DENSITY W/WO DENIA EXAM: XR DEXA BONE DENSITY W/WO DENIA CLINICAL HISTORY: SCREENING FOR OSTEOPOROSIS IN POSTMENOPAUSAL WOMAN,Z78.0 TECHNIQUE: KeyCAPTCHA C densitometer COMPARISON: CR LUMBAR SPINE COMPLETE from 01/03/2015 FINDINGS: Lateral view of the thoracic and lumbar spine shows no evidence of compression fractures. Bone mineral density measurements of the lumbar spine correspond to a total T-score of -1.8, consist ent with osteopenia. Bone mineral density measurements of the left hip correspond to a total T-score of -1.8. The femora l neck T-score is -2.4, consistent with osteopenia.. The right forearm bone mineral density measurements correspond to a T-score of the distal 3rd of -3 .0, in the osteoporotic range. WHO 10 year risk of major osteoporotic fracture 11 percent. Ten year risk of hip fracture calculated at 2 0.4 percent.. IMPRESSION: Osteopenia of the lumbar spine and left hip. Osteoporosis of the right wrist.
== END 2021-08-07 01:32 ==
PROVIDERS: PCP Nurse Practitioner; Visit Provider Nurse Practitioner
DX: Z78.0 Asymptomatic menopausal state (principal); Z13.820 Encounter for screening for osteoporosis; M81.0 Age-related osteoporosis without current pathological fracture; M85.89 Other specified disorders of bone density and structure, multiple sites
CPT/HCPCS: 77080

== ENCOUNTER 2022-04-01 22:06 | Emergency (ER) | payer MEDICARE, SELFPAY ==
[2022-04-01 22:09] VITALS: BP 164/106; PULSE 89; RESP 15; TEMP 36.8; O2SAT 98
--- NOTE | 2022-04-01 22:25 | W.ED.GENAD ---
Discharge Plan Disposition Patient Disposition: HOME Condition: Stable Discharge Details Clinical Impression: Elevated blood pressure reading Primary Care Provider: Stephanie Coe ED Provider: Wally Burt Home Meds and New Rx's Prescriptions: Continued acetaminophen 500 mg tablet 500 mg PO Q6H PRN PRN (Reason: pain) Qty: 60 3RF ibuprofen 600 mg tablet 600 mg PO TID PRN (Reason: pain) Qty: 60 3RF Discharge Instructions Additional Instructions: based on your history there was no indication for any blood testing or imaging at this time follow up with your primary care provider within 1-2 weeks If you develop any chest pain/pressure, difficulty breathing, severe headaches or feel more ill return to the emergency department Medical Decision Making 66 yo female with no chronic medical problems comes in with chief complaint of concern over hypertension. She states she felt well all day, even went hiking and had no symptoms such as dyspnea or chest pain/pressure. She checks her bp at night and normally is 117/77, but checked it tonight and it was 139/85 so came here for an evaluation. She has not had any headaches, dyspnea, chest pain/pressure, fevers, abdominal pain, n/v, vision changes, weakness. She feels well and has no other complaints. She is caox4, clear speech, eomi, perrl, CN II-XII intact, clear lungs, no murmurs, soft abdomen, no focal motor or sensation deficits. Her bp here is 164/106. Given her lack of symptoms to suggest end organ damage and her well appearance do not feel any testing indicated. She will follow up with her pcp within 1-2 weeks for recheck, return precautions given Differential Diagnosis Differential Diagnosis: asymptomatic hypertension, essential hypertension HPI General Mode of arrival: ambulatory. Date/Time Provider Initiated Documentation: 04/01/22 22:07. Limitations to Documentation: no limitations. Information obtained by: patient. History of Present Illness 66 year old F presents to the emergency department with the chief complaint of concern about blood pressure, described as moderate, Patient started experiencing this hour(s) (1) and it has been constant. No relieving factors improve symptom(s), No exacerbating factors reported . Patient notes no other symptoms.. Patient did receive the following treatments prior to arrival, none Related Data Home Medications Medication Instructions Recorded Confirmed acetaminophen 500 mg tablet 500 mg PO Q6H PRN PRN pain #60 tabs 01/25/21 07/12/21 ibuprofen 600 mg tablet 600 mg PO TID PRN pain #60 tabs 01/25/21 07/12/21 Previous Rx's Medication Instructions Recorded acetaminophen 500 mg tablet 500 mg PO Q6H PRN PRN pain #60 tabs 01/25/21 ibuprofen 600 mg tablet 600 mg PO TID PRN pain #60 tabs 01/25/21 Allergies Allergy/AdvReac Type Severity Reaction Status Date / Time Penicillins Allergy Unknown Verified 07/12/21 08:07 General Stated Complaint: GenMedical VISHAL: 4 Review of Systems All systems reviewed & are unremarkable except as noted in HPI and below Constitutional Constitutional: Denies chills, Denies fever(s) and Denies weakness Eyes Eyes: Denies loss of vision Cardiovascular Cardiovascular: Denies chest pain and Denies dyspnea Respiratory Respiratory: Denies cough and Denies dyspnea Gastrointestinal Gastrointestinal: Denies abdominal pain, Denies nausea and Denies vomiting Musculoskeletal Musculoskeletal: Denies joint swelling Integumentary/Breasts Skin/Breast: Denies rash Neurologic Neurologic: Denies loss of vision and Denies weakness PFSH All Active Problems (Updated 04/01/22 @ 22:27 by Wally Burt MD) Elevated blood pressure reading (Acute) Varicose vein of leg (Acute) Essential tremor (Acute) Pre-diabetes (Acute) Medical History (Updated 04/01/22 @ 22:27 by Wally Burt MD) Hx of dislocation of shoulder No significant past medical history Surgical History (Updated 07/12/21 @ 08:42 by Cece Vieira NP) Closed fracture of left distal radius S/P ORIF: 01/25/2021 Hx of colonoscopy No significant past surgical history Rupture of extensor tendon of left hand EIP to EPL transfer: 02/15/2021 Family History Mother , age 75+ Metastatic lung cancer (metastasis from lung to other site) Father , age 75+ Heart disease Sister Depression Chronic fatigue syndrome Son No problems noted. Son No problems noted. Maternal Grandfather , in his 70s Heart disease [place] Paternal Grandfather , in his 70s No problems noted. Maternal Grandmother , in her 70s No problems noted. Paternal Grandmother , in her 40s No problems noted. Social History (Updated 07/13/21 @ 13:03 by Erum Rowell) Smoking/Tobacco Use Status: Former Tobacco Use tobacco type: cigarettes Quit Date: 05/19/77 Tobacco: How many years used: 3 Second Hand Exposure: Yes Smoking risk assessment performed?: Yes Alcohol Intake: current Alcohol Intake frequency: a few times a week Alcohol type: wine Drug use: Never Substance use type: does not use Caregiver/Support person: No Household members: none Housing: house Communication Needs: None Do you need help understanding health information?: Never Pets and animals: Yes Pets and animals: cat(s), dog(s) and farm animals Sexually active: No Do you think of yourself as: straight/heterosexual Current gender identity: female What is your relationship status?: How often do you talk on the phone with friends or family?: three or more times per week How often do you get together with friends or relatives?: three or more times per week Do you belong to any clubs or organized social groups?: no Panel score (0-1 are the most socially isolated patients): 1 What type of physical activity do you participate in: walking, aerobic and weight lifting Duration: > 90 minutes/day Frequency: daily Emi/Anabaptism: Congregation Special emi needs: No Seatbelt use: always Helmet use: Yes Helmet use: always Drive intox or ride w/intox local company refrigerated truck driver: No Do you feel safe at home: Yes Additional Social history: lives alone Exam Const General: no acute distress Orientation: alert HENMT Head: normal to inspection Ears: external ears normal General nose exam: external nose normal Mouth: moist mucous membranes Eyes General: appearance normal, both eyes and all related structures Neck Neck: normal visual inspection Resp Effort & Inspection: normal respiratory effort and able to speak in complete sentences Cardio Heart Sounds: no murmurs GI Palpation: soft and nontender Skin General skin exam: no rashes or lesions noted Neuro General: patient alert and patient oriented x3 Extrem General: normal to inspection Psych Mental Status: mental status grossly normal Course Vital Signs Vital signs: Vital Signs Temperature 36.8 C 04/01/22 22:09 Pulse 89 04/01/22 22:09 Respiratory Rate 15 04/01/22 22:09 Blood Pressure 164/106 H 04/01/22 22:09 Pulse Oximetry 98 11/14/22 22:09 Temperature 36.8 C 04/01/22 22:09 Pulse 89 04/01/22 22:09 Respiratory Rate 15 04/01/22 22:09 Blood Pressure 164/106 H 04/01/22 22:09 Blood Pressure Position Sitting 04/01/22 22:09 Pulse Oximetry 98 04/01/22 22:09 Oxygen Delivery Method Room Air 04/01/22 22:09 Oxygen Flow Rate 0 04/01/22 22:09
[2022-04-01 22:38] VITALS: RESP 15
== END 2022-04-01 22:32 | disposition home or self-care (01) ==
PROVIDERS: Emergency Provider Emergency Medicine; PCP Nurse Practitioner Family
DX: I10 Essential (primary) hypertension (principal)
CPT/HCPCS: 99281; 99282

== ENCOUNTER → 2023-02-19 11:27 | Outpatient (BNVA) | payer MEDICARE, SELFPAY | PROVIDERS: PCP Nurse Practitioner Family; Referring Provider Nurse Practitioner Family; Visit Provider Surgery | DX: Z12.11 Encounter for screening for malignant neoplasm of colon (principal) ==

== ENCOUNTER 2023-03-13 06:16 | Day surgery (SDC) | payer MEDICARE, SELFPAY ==
--- NOTE | 2023-03-12 17:12 | COLE_ITS ---
Date of service: 03/13/23 Time of Service: 07:57 Colonoscopy Report Date of procedure: 03/13/23 Pre-op diagnosis general: Screening colonoscopy Post-op diagnosis procedure note: other (Colon polyp) Procedure: Colonoscopy with polypectomy Surgeon: Adriel Montero Anesthesia Type: General:No Airway Estimated blood loss (mL): 5 Pathology: other (0.25 cm polyp at 55 cm) Complications: None Disposition: same day Indications: Aileen is a 67-year-old woman who needs another screening colonoscopy Prep: Miralax/Dulcolax Procedure Start Time: 07:29 Procedure End Time: 07:44 Findings: 0.5 cm polyp at 55 cm Procedure Description: After the induction of monitored anesthetic care, and with the patient in left lateral decubitus position, I began by performing an external anorectal exam.? Perineum and skin were normal, as was the anal verge.? There was no evidence of external hemorrhoids.? Next, I performed a digital rectal exam.? I did not appreciate any abnormal findings.? Next, I advanced a colonoscope into the rectal vault.? I performed retroflexion.? I this appeared normal.? Using insufflation, I then advanced the colonoscope beyond the rectal folds and into the sigmoid colon before advancing towards the cecum.? The scope was noted to be in the cecum by identification of the ileocecal valve and appendiceal orifice.? I then began withdrawing the colonoscope using repeated irrigation as necessary for full evaluation of the colonic mucosa. Around 55 cm from the anal verge I identified a 0.25 cm polyp. ?It appeared sessile in character. ?I was able to remove this with a cold forcep polypectomy. ?I examined the site, and there was minimal bleeding. ?Once this was completed, I continued to withdraw the scope and examine the remainder of the colonic mucosa.?Once the scope was withdrawn to the level of the rectum, great care was taken to examine portions of the rectal folds.? Finally, the scope was withdrawn and the patient was brought to the same-day surgery recovery unit as the anesthetic wore off. ?The findings and instructions were shared with the patient prior to discharge. Stovall Bowel Prep Stovall Bowel Prep Right Colon: 3 Left Colon: 3 Transverse Colon: 3 Total Score: 9
--- NOTE | 2023-03-12 17:12 | W.PM.DSUDISC ---
Date of service: 03/13/23 Time of Service: 07:55 Discharge Plan Disposition Patient Disposition: Home Condition: Good Discharge Details Reason For Visit: Screening colonoscopy Attending Provider: Adriel Montero Primary Care Provider: Stephanie Coe Home Meds and New Rx's Prescriptions: Continued tetanus-diphtheria toxoids-Td 2-2 Lf unit/0.5 mL suspension 0.5 ml IM ONCE Qty: 0.5 0RF glucosamine-chondroitin [Osteo Bi-Flex] 250-200 mg tablet 2 tab PO TID Patient Comments: pt states she takes 6 tabs twice daily Rx Instructions: give after food/meal Discharge Instructions Instructions: Colorectal Polyps (GEN) Additional Instructions: Anabell, we were able to complete your colonoscopy without any difficulty at all today. You did great. I did find 1 small polyp and removed it completely. Once I have the results of the pathology report, I will be in touch with my recommendations for your next colonoscopy. If you have any questions in the meantime, please do not hesitate to call. 1. If tolerated, consume a soft, low fiber diet for 1-2 days. 2. Do not drive, drink alcohol, operate machinery, make critical decisions, or do activities that require coordination or balance for 24 hours. 3. Because air was put into your colon during the procedure, expelling air from your rectum (passing gas or farting) is normal. 4. You may not have a bowel movement for 1-3 days because of the colonoscopy prep. This is normal. 5. Go directly to the emergency room if you notice any of the following: Develop chills (warm to touch), or if you have a thermometer and your temperature is above 101 Difficulty breathing or difficultly swallowing Persistent vomiting Severe abdominal pain, other than gas cramps Severe chest pain Black, tarry stools Any bleeding ? exceeding one tablespoon 6. Call your physician if the site where your intravenous was started becomes red, swollen, painful, and warm to touch. 7. Your physician has reviewed your pre-procedure medications. Please continue to take those medications as previously ordered. You will be given specific information/education regarding any changes to your medications before leaving. Activity:: Activity as Tolerated Diet:: As Tolerated Discharge Orders Discharge Orders: Discharge Order (Routine); Ordered 03/12/23 Ordered By: Adriel Montero DS: Diagnosis Discharge Diagnosis (1) Screen for colon cancer: Status: Acute Asessment and Plan: I will follow-up on polypectomy results
[2023-03-13 06:27] VITALS: BP 121/96; PULSE 81; RESP 18; O2SAT 97
[2023-03-13] MEDS: Lactated Ringers 1,000 ML 80 ML IV (06:54)
--- NOTE | 2023-03-13 07:20 | W.ANESPRE ---
General Info Date of Service Date Performed: 03/13/23 Height: 5 ft 6 in Weight: 60.1 kg Body Mass Index (BMI): 21.4 Surgical Procedure: Operation Date: 03/13/23 07:35 Proposed Procedure Side Surgeon p Colonoscopy Adriel Montero MD Actual Procedure Side Surgeon p Colonoscopy Not Applicable Adriel Montero MD Meds Allergies and Home Medications Allergies Allergy/AdvReac Type Severity Reaction Status Date / Time Penicillins Allergy Unknown Verified 03/13/23 06:37 Home Medication Medication Instructions Recorded glucosamine-chondroitin 250 mg-200 2 tab PO TID 03/13/23 mg tablet (Osteo Bi-Flex) Current Visit Medications: Current Medications Generic Name Dose Route Start Last Admin Trade Name Freq PRN Reason Stop Dose Admin Hyoscyamine Sulfate 0.125 mg 03/12/23 17:15 Hyoscyamine 0.125 Mg Sl/Oral/Chew SL 04/11/23 17:14 DIRECTED PRN Ringer's Solution 1,000 mls @ 80 mls/hr 03/13/23 06:00 03/13/23 06:54 IV 03/13/23 23:59 80 mls/hr INFUSION KAREN Administration IV Miscellaneous Supplies 1 each 03/13/23 06:00 Iv Access IV 03/13/23 23:59 DIRECTED KAREN Ondansetron HCl 4 mg 03/12/23 17:15 Ondansetron 4 Mg/2 Ml Vial IVP 04/11/23 17:14 Q4H PRN PRN Nausea / Vomiting Sodium Chloride 0 ml 03/13/23 06:00 Normal Saline Flush 10 Ml Syr IV 03/13/23 23:59 PRN PRN Sodium Chloride 0 ml 03/13/23 06:00 Normal Saline 10 Ml Vial IJ 03/13/23 23:59 DIRECTED PRN Sterile Water 0 ml 03/13/23 06:00 Water,Injection,Sterile 10 Ml Vial IJ 03/13/23 23:59 DIRECTED PRN PFSH Active Problems Active Problems: Problem Status Onset Code Screen for colon cancer Z12.11 Varicose vein of leg I83.90 Essential tremor G25.0 Pre-diabetes R73.03 Medical History Medical History Hx of dislocation of shoulder No significant past medical history Surgical History Surgical History Rupture of extensor tendon of left hand EIP to EPL transfer: 02/15/2021 Hx of colonoscopy Closed fracture of left distal radius S/P ORIF: 01/25/2021 No significant past surgical history Tobacco Smoking/Tobacco Use Status: Former Tobacco Use Passive smoking exposure: Yes (rarely) Second hand exposure: Yes Alcohol Alcohol Intake: current Alcohol intake frequency: a few times a month Alcohol type: wine Substance Use Substance use: Never Substance use type: does not use Vital Signs and Lab Results Vital Signs Most Recent Vital Signs in EMR: Most Recent Vital Signs Pulse Resp BP Pulse Ox 81 18 121/96 H 97 03/13/23 06:27 03/13/23 06:27 03/13/23 06:27 03/13/23 06:27 Lab Results Blood Type / Crossmatch: No Data to Display Complete Blood Count: No Data to Display Complete Metabolic Panel: No Data to Display Liver Function Panel: No Data to Display Coagulation Panel: No Data to Display Cardiac Panel: No Data to Display Arterial Blood Gas: No Data to Display Venous Blood Gas: No Data to Display Pancreas Panel: No Data to Display Thyroid Panel: No Data to Display Infectious Disease: No Data to Display Blood Cultures: No Data to Display Toxicology Panel: No Data to Display Anesthesia Assessment and Plan Anesthesia History Personal History: No History of Anesthesia Complications Family History: No Family History of Anesthesia Complications Exercise Tolerance Exercise Tolerance: Metabolic Equivalents<4 Pertinent Negatives Pertinent Negatives: No Symptoms of GERD Cardiac & Pulmonary Exam Cardiac Exam: Normal S1/S2 Heart Sounds Pulmonary Exam: Clear Bilateral Breath Sounds Implantable Cardiac Device Does patient have a Pacemaker or an ICD?: No Airway Exam Known Difficult Airway: No Mallampati Class: 2 Mouth Opening: Normal (> 3cm) Thyromental Distance: Less than 3 cm Neck Range of Motion: Full ROM Neck Circumference: Normal Teeth Condition: Normal Dentition ASA Classification ASA Score: ASA 2 Emergency Case?: No NPO Status NPO Status: NPO Clears >2 hours, Solids >8 hours Anesthesia Plan Resuscitation Status: Full Code Anesthesia Technique: General Anesthesia Airway Planned: Natural Airway Monitors Used: Standard Monitors
[2023-03-13 07:21] VITALS: BMI 21.4
--- NOTE | 2023-03-13 07:40 | BOWEL_PTH ---
PATIENT: Anabell Torres LOC: [facility] U#:[id number] AGE/SX: 67/F ROOM: RE03/13/[address]: Adriel Monetro MD : 1955 BED: DIS: 03/13/2023 SPEC #: [id number] RECD: 03/13/23 12:31 STATUS: GERRI RECindy #: [id number] BRIDGETTE: 03/13/23 07:[address]: Adriel Montero DEPT: Surgical Specimen RECD BY: Chiara Barron ENTERED: 03/13/23 12:32 SP TYPE: Bowel OTHR DR: Stephanie Coe, JUANI Tissues: 1 - BIOPSY BOWEL Procedures: GROSS AND MICRO LEVEL 4 Comments: [id number]
[2023-03-13 07:51] VITALS: BP 98/69; PULSE 77; RESP 16; TEMP 36.5; O2SAT 96
--- NOTE | 2023-03-13 08:00 | W.ANESPOSTOP ---
Postoperative Evaluation Date, Time and Location Date Performed: 03/13/23 Time Performed: 08:01 Patient Location: Day Surgery Unit Vital Signs Most Recent Imported Vital Signs: Most Recent Vital Signs Temp Pulse Resp BP Pulse Ox 36.5 C 77 16 98/69 L 96 03/13/23 07:51 03/13/23 07:51 03/13/23 07:51 03/13/23 07:51 03/13/23 07:51 Pain Score Most Recent Pain Score: Most Recent Pain Score Pain Level 0 03/13/23 07:51 Assessment Mental Status: Awake (Alert & Oriented to Patient Baseline) Airway and Respiratory Function: Patent airway with normal (patient baseline) respiratory exam Cardiovascular Function: Hemodynamically Stable Hydration Status: Adequately Hydrated Nausea & Vomiting: No Nausea or Vomiting Pain: Pt. Denies Any Pain Peripheral Nerve Block: Patient did not receive a nerve block
[2023-03-13 08:19] VITALS: BP 120/82; PULSE 67; RESP 16; TEMP 36.5; O2SAT 98
== END 2023-03-13 08:45 | disposition home or self-care (01) ==
PROVIDERS: PCP Nurse Practitioner Family; Visit Provider Surgery
PROC: 0DJD8ZZ Inspection of Lower Intestinal Tract, Via Natural or Artificial Opening Endoscopic (ICD-10-PCS; CPT 45378; principal; 2023-03-13 07:30)
DX: Z12.11 Encounter for screening for malignant neoplasm of colon (principal); D12.4 Benign neoplasm of descending colon
CPT/HCPCS: 45380; 88305; J2001

== ENCOUNTER 2024-09-03 12:23 | Outpatient (REF) | payer MEDICARE, SELFPAY ==
[2024-09-04 11:23] LABS: Campylobacter PCR Negative (Negative); Salmonella PCR Negative (Negative); Shiga Toxin PCR Negative (Negative); Shigella/Enteroinvasive Ecoli Negative (Negative)
[2024-09-07 14:19] LABS: Calprotectin <50.0 mcg/g
== END 2024-09-03 12:24 | disposition home or self-care (01) ==
LOC: LBN 12:23
PROVIDERS: PCP Nurse Practitioner Family; Visit Provider Nurse Practitioner Family
DX: R19.7 Diarrhea, unspecified (principal)
CPT/HCPCS: 87505; 83993; 87177

== ENCOUNTER 2024-09-15 01:42 | Outpatient (CLI) | payer MEDICARE, SELFPAY ==
[2024-09-15 08:47] LABS: ALT 21 U/L (14-59); AST 17 U/L (15-37); Albumin 3.8 g/dL (3.4-5.0); Alkaline Phosphatase 72 U/L (46-116); Anion Gap 8.3 mmol/L (3-11); BUN 14 mg/dL (7-18); Bilirubin, Total 0.5 mg/dL (0.2-1.0); CO2 28.7 mmol/L (21.0-32.0); CREATININE 0.9 mg/dL (0.55-1.02); Calcium 9.4 mg/dL (8.5-10.1); Calculated LDL 189 mg/dL (<100); Chloride 107 mmol/L (98-107); Cholesterol 257 mg/dL (<200); Glucose 89 mg/dL (74-106); HDL Cholesterol 55 mg/dL (>or=50); Potassium 3.9 mmol/L (3.5-5.1); Sodium 144 mmol/L (136-145); Total Protein 7.5 g/dL (6.4-8.2); Triglyceride 67 mg/dL (<150)
[2024-09-16 09:45] LABS: IgA 352 mg/dL (85-499); IgG 929 mg/dL (610-1616)
[2024-09-16 10:39] LABS: Tissue Transglutaminase IgA <4.0 CU (<20.0)
== END 2024-09-15 01:43 | disposition home or self-care (01) ==
PROVIDERS: PCP Nurse Practitioner Family; Visit Provider Nurse Practitioner Family
DX: E78.00 Pure hypercholesterolemia, unspecified (principal); Z00.00 Encounter for general adult medical examination without abnormal findings; R73.03 Prediabetes; M81.0 Age-related osteoporosis without current pathological fracture; R19.7 Diarrhea, unspecified
CPT/HCPCS: 36415; 80053; 80061; 82784; 84443

== ENCOUNTER 2024-09-17 01:32 | Outpatient (CLI) | payer MEDICARE, SELFPAY ==
--- NOTE | 2024-09-17 07:00 | DI.DEXA_ITS ---
Exam(s) XR DEXA BONE DENSITY W/WO DENIA EXAM: XR DEXA BONE DENSITY W/WO DENIA CLINICAL HISTORY: screening for osteoporosis in postmenopausal state,Z78.0 TECHNIQUE: COMPARISON: CR XR DEXA BONE DENSITY W/WO DENIA from 08/07/2021 FINDINGS: Lateral Spine Image: Unremarkable. No compression deformities identified. Left hip: Total T-Score: -1.9. This compares to -1.8 on the prior examination. Total Z-Score: -0.4 T- and Z-scores: Findings are consistent with osteopenia. Lumbar Spine: Total T-Score: -2.0. This compares to -1.8 on the prior examination. Total Z-Score: 0.1 T- and Z-scores: Findings are consistent with osteopenia. There is osteoporosis in the right forearm with a total T-score of -2.9 and Z-score of -0.9. This co mpares to a total T-score of -3.0 on the prior examination. IMPRESSION: There is osteoporosis again seen in the right forearm.
== END 2024-09-17 01:52 ==
LOC: DI 01:32
PROVIDERS: PCP Nurse Practitioner Family; Visit Provider Nurse Practitioner Family
DX: Z78.0 Asymptomatic menopausal state (principal); Z13.820 Encounter for screening for osteoporosis; M81.0 Age-related osteoporosis without current pathological fracture
CPT/HCPCS: 77080